=== PATIENT | male | born 1960 | race African-American/Black ===

== ENCOUNTER 2025-01-09 10:56 | Emergency (ER) | payer MEDICARE, OTHER ==
[~2025-01-09] VITALS: Ht 167.6 cm; Wt 64.0 kg
[2025-01-09 11:09] VITALS: BP 145/85; TEMP 98
[2025-01-09] MEDS ORDERED: ONDANSETRON 4 MG TAB.RAPDIS ONE (11:30)
[2025-01-09] MEDS ORDERED: HYDROCODONE/APAP 10/325MG TABLET ONE (11:30)
[2025-01-09] MEDS ORDERED: HYDR-3976 PO (11:32)
[2025-01-09] MEDS: ONDANSETRON 4 MG TAB.RAPDIS SL ONE (11:34)
[2025-01-09] MEDS: HYDROCODONE/APAP 10/325MG TABLET PO ONE (11:34)
[2025-01-09 11:58] VITALS: O2SAT 97
== END 2025-01-09 11:59 ==
LOC: ER 11:16
DX: F11.23 Opioid dependence with withdrawal (principal); E78.5 Hyperlipidemia, unspecified; G89.4 Chronic pain syndrome; I73.9 Peripheral vascular disease, unspecified; N18.9 Chronic kidney disease, unspecified; K21.9 Gastro-esophageal reflux disease without esophagitis; Z96.641 Presence of right artificial hip joint
CPT/HCPCS: 99283; Q0162